=== PATIENT | female | born 1930 | race Caucasian/White ===

== ENCOUNTER 2016-09-19 10:14 | Outpatient (CLI) | payer OTHER ==
[2016-04-23 10:19] VITALS: BP 112/54
--- NOTE | 2016-09-19 15:02 | Diagnostic Imaging Report ---
[facility] [address] [facility].[address] [id number] Report Submission Date: Sep 19, 2016 11:31:13 AM TIRE RECAPPER Patient Study Name: SAMUEL WILSON Date: Sep 19, 2016 10:27:14 AM TIRE RECAPPER Modality Type: CR Gender: F Description: CHEST : 28 Institution: [facility] Physician ANNA MARIE FERRIS ([facility]) - OP 2 views the chest The history: Chest tightness Findings: There is elevation of the right hemidiaphragm. Heart size is normal. No pleural effusion, pneumothorax or alveolar consolidation. There is a hiatal hernia. Impression: Hiatal hernia and elevation right hemidiaphragm No chf or pneumonia Electronically signed on Sep 19, 2016 11:31:13 AM TIRE RECAPPER by: Stefano GUZMAN
== END 2016-09-19 10:15 ==
LOC: RT 10:14
PROVIDERS: ATTEND Nurse Practitioner Family
DX: R07.9 Chest pain, unspecified (principal)
CPT/HCPCS: 71020